=== PATIENT | female | born 1975 | race Caucasian/White ===

== ENCOUNTER 2020-11-08 12:05 | Emergency (ER) | payer BC ==
[2020-11-08] MEDS ORDERED: Lidocaine 1% 10 ML MDV INJECT ONE (12:31)
[2020-11-08] MEDS ORDERED: Diphtheria,Pertussis(Acell),Tetanus Vaccine 0.5 ML Syringe IM ONE (12:31)
--- NOTE | 2020-11-08 12:35 | EDM.PDOC ---
ED HPI GENERAL MEDICAL PROBLEM - General Chief Complaint: Laceration Stated Complaint: RT POINTER FINGER LAC Time Seen by Provider: 11/08/20 12:24 Source of Information: Reports: Patient, RN Notes Reviewed History Limitations: Reports: No Limitations - History of Present Illness INITIAL COMMENTS - FREE TEXT/NARRATIVE: Patient is a 45-year-old female who presents to the ER for the evaluation of a pointer finger laceration of her right hand. This is on the anterior aspect of the patient's finger, at the distal tip, and a V-shaped distribution measuring about 2 cm. Patient was using a mandolin to slice vegetables, when she ended up slicing the tip of her finger. Patient is not sure she is up-to-date on her tetanus booster. Patient denies any other sick-like symptoms, fever/chills, cough/shortness of breath, nausea/vomiting/diarrhea. Bleeding is controlled at this time. Right Finger-Index Pain Score (Numeric/FACES): 1 - Related Data Allergies Allergy/AdvReac Type Severity Reaction Status Date / Time amoxicillin AdvReac Nausea and Verified 11/08/20 12:23 Vomiting Home Meds: Home Meds . 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 ED EXAM, SKIN/RASH Exam: See Below Exam Limited By: No Limitations General Appearance: Alert, WD/WN, No Apparent Distress Respiratory/Chest: No Respiratory Distress, Lungs Clear, Normal Breath Sounds, No Accessory Muscle Use, Chest Non-Tender Cardiovascular: Normal Peripheral Pulses, Regular Rate, Rhythm, No Edema Peripheral Pulses: 2+: Radial (L), Radial (R) Extremities: Normal Range of Motion, Normal Capillary Refill Neurological: Alert, Oriented, Normal Cognition, No Motor/Sensory Deficits Psychiatric: Normal Affect, Normal Mood Skin: Warm, Dry, Normal Color, No Rash, Wound/Incision (2cm V shaped laceration to R anterior finger tip. does not violate the nail.) ED SKIN PROCEDURES - Laceration/Wound Repair Right Anterior Distal Digit - 2nd (Index) Appearance: Superficial, Irregular (v-shaped) Distal NVT: Neuro & Vascular Intact, No Tendon Injury Anesthetic Type: Local Local Anesthesia - Lidocaine (Xylocaine): 1% Plain Local Anesthetic Volume: 3cc Skin Prep: Chlorhexidine (Hibiciens), Saline Exploration/Debridement/Repair: Wound Explored, In a Bloodless Field, Explored to Base, No Foreign Material Found Closed with: Sutures Lac/Wound length In cm: 2 Suture Size: 4-0 # of Sutures: 5 Suture Type: Prolene, Interrupted, Simple Sterile Dressing Applied: Nurse Tetanus Status Addressed: Yes Complications: No Course - Vital Signs Last Recorded V/S: Last Vital Signs Temp 97.8 F 11/08/20 12:21 Pulse 61 11/08/20 12:21 Resp 16 11/08/20 12:21 BP 143/89 H 11/08/20 12:21 Pulse Ox 98 11/08/20 12:21 - Orders/Labs/Meds Orders: Active Orders 24 hr Category Date Time Status Vaccines to be Administered [RC] PER UNIT ROUTINE Care 11/08/20 12:31 Ordered Meds: Medications Discontinued Medications Generic Name Dose Route Start Last Admin Trade Name Arnoldo PRN Reason Stop Dose Admin Diphtheria/Tetanus/Acell Pertussis 0.5 ml 11/08/20 12:31 11/08/20 12:58 Diphtheria,Pertussis(Acell),Tetanus Vaccine 0.5 Ml Syringe IM 11/08/20 12:32 0.5 ml .ONCE ONE Administration Lidocaine HCl 10 ml 11/08/20 12:31 11/08/20 12:59 Lidocaine 1% 10 Ml Mdv INJECT 11/08/20 12:32 10 ml ONETIME ONE Administration Departure - Departure Time of Disposition: 12:34 Disposition: Home, Self-Care 01 Condition: Good Clinical Impression: Finger laceration Qualifiers: Encounter type: initial encounter Finger: index finger Damage to nail status: without damage Foreign body presence: without foreign body Laterality: right Qualified Code(s): S61.210A - Laceration without foreign body of right index finger without damage to nail, initial encounter - Discharge Information *PRESCRIPTION DRUG MONITORING PROGRAM REVIEWED*: No *COPY OF PRESCRIPTION DRUG MONITORING REPORT IN PATIENT ANEUDY: No Instructions: Sutures, [place], or Adhesive Wound Closure, [id number] Referrals: Payton Hung NP [Primary Care Provider] - Forms: ED Department Discharge Additional Instructions: You have been evaluated in the ED for your laceration. Sutures will need to stay in for 10 to 14 days. You may return to the ED or any clinic for removal. Please keep this area clean and dry, you may cleanse with regular soap and water. No vigorous scrubbing. Please try to avoid submerging the affected area in water for prolonged periods of time until the sutures are removed. Watch out for signs of infection like increased redness, swelling, pain at the laceration site, or if you should develop any fevers or chills. Please return to ED if your symptoms change or worsen. Sepsis Event Note (ED) - Evaluation Sepsis Screening Result: No Definite Risk - Focused Exam Vital Signs: Vital Signs Temp Pulse Resp BP Pulse Ox 11/08/20 12:21 97.8 F 61 16 143/89 H 98 - My Orders Last 24 Hours: My Active Orders 11/08/20 12:31 Vaccines to be Administered [RC] PER UNIT ROUTINE - Assessment/Plan Last 24 Hours: My Active Orders 11/08/20 12:31 Vaccines to be Administered [RC] PER UNIT ROUTINE
== END 2020-11-08 13:40 | disposition home or self-care (01) ==
LOC: JD.ED 12:05
DX: S61.210A Laceration without foreign body of right index finger without damage to nail, initial encounter (principal); Z88.0 Allergy status to penicillin; Z23 Encounter for immunization; W26.8XXA Contact with other sharp object(s), not elsewhere classified, initial encounter
CPT/HCPCS: 12001; 90471; 90715; 99282; 99282-25